=== PATIENT | male | born 1955 | race Caucasian/White ===

== ENCOUNTER → 2016-10-22 | Day surgery (SDC) | payer OTHER ==
[~2016-10-22] VITALS: Ht 185.4 cm; Wt 97.7 kg
[~2016-10-22] MED LIST: ATOR10TA15 PO; BUPIVACAINE HCL PF 0.5% 30 ML VIAL ONE; BUPIVACAINE/EPINEPHRINE 0.5% PF 30 ML VIAL ONE; DEXT 5%-NACL 0.45% 1000 ML INJ 1,000 ML IV SCH; FAMOTIDINE 20 MG/2 ML VIAL ONE; GLUM500T PO; LACTATED RINGER'S 1000 ML INJ 1,000 ML ONE; LIDOCAINE 2%/EPINEPHrine PF 1:200,000 20ML SDV INFIL ONE; LISI10TA3 PO; MIDAZOLAM HCL 2 MG/2 ML VIAL ONE; ONDANSETRON HCL 4 MG/2 ML VIAL IV PUSH ONE; PERC5TAB12 PO; POVIDONE IODINE 10% OINT 1 PACKET TOPICAL ONE; PROPOFOL 200 MG/20 ML AMP IV ONE; SODIUM CHLORIDE 0.9% FLUSH 5 ML FLUSH IVF PRN; SODIUM CHLORIDE 0.9% FLUSH 5 ML FLUSH IVF SCH; ceFAZolin 2 GM PREMIX 50 ML ONE
[2016-10-22 06:39] VITALS: BP 130/90; PULSE 70; RESP 18; TEMP 97.7; O2SAT 98
[2016-10-22 06:49] LABS: HEMATOCRIT 42.7 % (39.0-51.0); MEAN CELL VOLUME 88.3 FL (80.0-100.0); MEAN CORPUSCULAR HEMOGLOBIN 30.2 PG (27.0-34.0); MEAN CORPUSCULAR HGB CONC 34.2 % (32.0-36.0); PLATELET COUNT 290 TH/MM3 (150-450); RED BLOOD COUNT 4.83 MIL/MM3 (4.50-5.90); RED CELL DISTRIBUTION WIDTH 12.8 % (11.6-17.2); REVIEW FLAG FINAL; WHITE BLOOD COUNT 6.9 TH/MM3 (4.0-11.0)
--- NOTE | 2016-10-22 08:09 | HP.UPD ---
H&P Update Date: October 22, 2016 Note The Pre-Admit History and Physical Examination regarding the above named patient was reviewed (including, but not limited to, vital signs, medications, allergies, co-morbid conditions), and upon re-examination it is noted that: Indicated with "X" x - the patient's condition has not significantly changed since the last examination. [] - the patient's condition has changed since the last examination. Changes: Swati Paul MD October 22, 2016 08:08
--- NOTE | 2016-10-22 10:29 | HHI.PR ---
Immediate Post Op Note Procedure Date: October 22, 2016 Pre Op Diagnosis: (1) Cubital tunnel syndrome on right (2) Right carpal tunnel syndrome Post Op Diagnosis: (1) Cubital tunnel syndrome on right (2) Right carpal tunnel syndrome Surgeon: Swati Paul Horse Buyer(s): None Procedure: Open release of the right cubital tunnel. Endoscopic release of the right carpal tunnel. Anesthesia: General Drains: None Tourniquet time (min at mmHg) 64 minutes at 220 mm Hg Patient to: PACU Patient Condition: Good Date/Time of Procedure: SEE SURGICAL CARE RECORD Swati Paul MD October 22, 2016 10:29
[2016-10-22 11:50] VITALS: BP 116/70; PULSE 74; RESP 16; TEMP 97.6; O2SAT 96
--- NOTE | 2016-10-22 14:49 | MP ---
cc: ERAN TAMEZ M.D. DATE OF SURGERY: 10/22/2016. PREOPERATIVE DIAGNOSIS: 1. Right cubital tunnel syndrome. 2. Right carpal tunnel syndrome. POSTOPERATIVE DIAGNOSIS: 1. Right cubital tunnel syndrome. 2. Right carpal tunnel syndrome. OPERATIVE PROCEDURE PERFORMED: 1. Open release of the right cubital tunnel. 2. Endoscopic release of the right carpal tunnel. ANESTHESIA: General SURGEON: Eran Tamez M.D. INDICATIONS FOR THE PROCEDURE: 61-year-old male with right cubital and carpal tunnel. FINDINGS: At the completion of the procedure, the tunnels had been released and both tunnels were tight. TOURNIQUET TIME: Tourniquet time was 64 minutes. DESCRIPTION OF THE PROCEDURE IN DETAIL: The patient was seen preoperatively where the sites and side were identified and marked. The patient was then taken to the operating room and placed in a supine position. His identity was checked against the arm band and the consent form, site and side confirmed, time-out called prior to beginning the procedure. The right upper extremity was prepped with Hibiclens and draped in the usual sterile fashion. The areas to be incised were outlined with a marking pen as an incision over the course of the ulnar nerve at the cubital tunnel proximally and distally for approximately 3 to 4 cm. The transverse incision was designed 1.5 cm proximal to the distal wrist crease and the distal edge of the transverse carpal ligament was identified and marked. The arm was then exsanguinated and the tourniquet inflated to 220 mmHg. Attention was first turned to the elbow where bupivacaine 0.5% plain was mixed in equal amounts with lidocaine 2% plain with epinephrine 1:200,000. Once the area was injected and infiltrated with the anesthetic, this was then done in the area of the carpal tunnel. A 15 blade was used to make the incision down through skin down to the subcutaneous tissue. Under loupe magnification using sharp and blunt dissection the superficial vessels and nerves were identified and preserved. The cubital tunnel was identified and it was opened both proximally and distally. Care was taken to avoid injury to the nerve. Once the nerve was opened proximally and distally, the wound was irrigated with saline and closed with 4-0 Vicryl to the dermal layer and 4-0 Prolene to the skin in a subcuticular stitch. Attention was then turned to the wrist where a transverse incision was made down through the skin down to the subcutaneous tissue. Under loupe magnification using a spread technique, the forearm fascia was identified and entered. It was then elevated. The synovial elevator was then used to identify the transverse carpal ligament as well as clean the synovium from it. The obturator cannula apparatus was then introduced into the wound and then just distal to the transverse carpal ligament down to the palmar fascia into the subcutaneous plane where separate incision was made. The entire apparatus was delivered. The obturator was removed leaving the cannula in place. The scope was then passed from distal to proximal identifying the transverse carpal ligament. Then under direct vision using a scope, the transverse carpal ligament was divided. The obturator was then placed back into the cannula and the entire apparatus was removed. A forearm fasciotomy was then carried out for 2-3 cm proximal to the distal wrist incision under direct vision. The wounds were then closed with Dermabond. Once the glue had dried in several layers, Steri-Strips were applied and then pressure was applied to both areas. The tourniquet was released after 64 minutes of tourniquet time. Pressure was applied. After several minutes, there was no evidence of any oozing from either wound and a dressing was applied using 4x4s and hand wrap to the carpal tunnel incision and povidone-iodine ointment, Adaptic, Telfa, 4x4s and hand wrap to the elbow. The patient was then taken from the operating room to the recovery room in satisfactory condition having tolerated the procedure well. Postoperative instructions include keeping the arm elevated and keeping the area clean and dry. MD GIANLUCA Maurer/TIFFANIE /10:33 AM /2:42 PM
--- NOTE | 2016-10-22 15:22 | EKG ---
Date Performed: 10/22/2016 Time Performed: 06:54:00 PTAGE: 61 years EKG: Sinus rhythm . Normal ECG PREVIOUS TRACING : 08/28/2014 17.49 DOCTOR: Brandon Rivers Interpretating Date/Time 10/22/2016 15:21:22
== END | disposition home or self-care (01) ==
LOC: PHSDC 06:12
PROVIDERS: ATTEND Specialist
DX: G56.21 Lesion of ulnar nerve, right upper limb (principal); G56.01 Carpal tunnel syndrome, right upper limb; Z01.810 Encounter for preprocedural cardiovascular examination; Z01.818 Encounter for other preprocedural examination; E11.9 Type 2 diabetes mellitus without complications; I10 Essential (primary) hypertension; E78.5 Hyperlipidemia, unspecified; Z96.649 Presence of unspecified artificial hip joint
CPT/HCPCS: 01810; 29848; 36415; 64719; 85027; 93005; J0690; J2250; J2405; J3010; J7120

== ENCOUNTER 2016-10-30 19:10 | Emergency (ER) | payer OTHER ==
[~2016-10-30] VITALS: Ht 185.4 cm; Wt 98.0 kg
[~2016-10-30 19:10] MED LIST changes: -BUPIVACAINE HCL PF 0.5% 30 ML VIAL ONE; -BUPIVACAINE/EPINEPHRINE 0.5% PF 30 ML VIAL ONE; -DEXT 5%-NACL 0.45% 1000 ML INJ 1,000 ML IV SCH; -FAMOTIDINE 20 MG/2 ML VIAL ONE; -LACTATED RINGER'S 1000 ML INJ 1,000 ML ONE; -LIDOCAINE 2%/EPINEPHrine PF 1:200,000 20ML SDV INFIL ONE; -MIDAZOLAM HCL 2 MG/2 ML VIAL ONE; -ONDANSETRON HCL 4 MG/2 ML VIAL IV PUSH ONE; -PERC5TAB12 PO; -POVIDONE IODINE 10% OINT 1 PACKET TOPICAL ONE; -PROPOFOL 200 MG/20 ML AMP IV ONE; -SODIUM CHLORIDE 0.9% FLUSH 5 ML FLUSH IVF PRN; -SODIUM CHLORIDE 0.9% FLUSH 5 ML FLUSH IVF SCH; -ceFAZolin 2 GM PREMIX 50 ML ONE
[2016-10-30 19:19] VITALS: BP 131/69; PULSE 72; RESP 18; TEMP 97.9; O2SAT 97
[2016-10-30] MEDS ORDERED: SODIUM CHLORIDE 0.9% FLUSH 10 ML FLUSH IVF PRN (19:30)
[2016-10-30 19:44] VITALS: BP_SYST 106; BP_SYST 112; BP_SYST 113; BP_DIAS 57; BP_DIAS 62; BP_DIAS 66
--- NOTE | 2016-10-30 19:44 | PD ---
HPI Chief Complaint: Allergic/Adverse Reaction Time Seen by Provider: 19:18 Travel History International Travel<30 days: No Contact w/Intl Traveler<30days: No Traveled to known affect area: No History of Present Illness HPI 61-year-old male with history of HTN, HLD, borderline diabetes here with possible allergic reaction. Patient was eating a fire house when suddenly he became lightheaded, and broke out into a red raised rash. Patient did not have any associated breathing difficulty, airway itching, nausea, vomiting or diarrhea. EMS was called and noticed patient to be "beet red" with urticarial type rash along the extremities and torso. Patient was initially hypotensive with systolics in the 80s. He was given 50 mg Benadryl, 125 mg Solu-Medrol with improvement of his symptoms and en route his blood pressure improved spontaneously. Patient denies any known history of food allergies. He is allergic to codeine, Vicodin, Celebrex but actually take Celebrex daily at home. His allergy to Celebrex is not an allergy but rather a side effect with a history of bleeding from the past. Patient feels back to baseline at this time. PFSH Past Medical History Cancer: No Cardiovascular Problems: No High Cholesterol: Yes Diabetes: Yes (BORDERLINE TYPE 2) Patient Takes Glucophage: Yes (10/30/2016 2200) Diminished Hearing: No Endocrine: No Glaucoma: No Genitourinary: No Hepatitis: No Hiatal Hernia: No Hypertension: Yes Immune Disorder: No Medical other: Yes (mild arthritis) Musculoskeletal: Yes (RIGHT HIP OSTEOARTHRTIS) Neurologic: No Psychiatric: No Reproductive: No Respiratory: No Thyroid Disease: No Tetanus Vaccination: < 5 Years Influenza Vaccination: No Past Surgical History Abdominal Surgery: No AICD: No Cardiac Surgery: No Ear Surgery: No Endocrine Surgery: No Eye Surgery: No Genitourinary Surgery: No Gynecologic Surgery: No Joint Replacement: Yes (RIGHT HIP) Oral Surgery: No Pacemaker: No Thoracic Surgery: No Other Surgery: Yes (right knee scope) Social History Alcohol Use: Yes (occ) Tobacco Use: No (quit 33 years ago) Substance Use: No Allergies-Medications (Allergen,Severity, Reaction): Coded Allergies: Celebrex (Verified Allergy, Severe, increased bleeding, 10/28/16) all antiflammatories Codeine (Verified Allergy, Unknown, NAUSEA & VOMITING, 10/28/16) Uncoded Allergies: VICODIN (Adverse Reaction, Mild, NAUSEA AND VOMITING, 05/29/10) Reported Meds & Prescriptions Reported Meds & Active Scripts Active Reported Glumetza (Metformin HCl) 500 Mg Ashwin 500 Mg PO DAILY With evening meal Lisinopril 10 Mg Tab 10 Mg PO DAILY Atorvastatin (Atorvastatin Calcium) 10 Mg Tab 10 Mg PO DAILY Review of Systems Except as stated in HPI: all other systems reviewed are Neg Physical Exam Narrative GENERAL: Well-appearing middle-aged male in no acute distress SKIN: Focused skin assessment warm/dry. No appreciable rash, urticaria HEAD: Normocephalic. EYES: No scleral icterus. No injection or drainage. ENT: No nasal bleeding or discharge. Mucous membranes pink and moist. Posterior pharynx clear without tonsillar swelling, posterior pharyngeal edema. No tongue swelling. NECK: Trachea midline. No JVD. Supple without stridor CARDIOVASCULAR: Regular rate and rhythm. No murmur appreciated. RESPIRATORY: No accessory muscle use. Clear to auscultation. Breath sounds equal bilaterally. GASTROINTESTINAL: Abdomen soft, non-tender, nondistended. MUSCULOSKELETAL: No obvious deformities. No edema. NEUROLOGICAL: Awake and alert. Motor grossly within normal limits. Normal speech. PSYCHIATRIC: Appropriate mood and affect; insight and judgment normal. Data Data Last Documented VS Vital Signs Date Time Temp Pulse Resp B/P Pulse Ox O2 Delivery O2 Flow Rate FiO2 10/30/16 19:44 63 106/57 70 112/62 77 113/66 10/30/16 19:19 97.9 18 97 Orders Electrocardiogram (10/30/16 19:18) Basic Metabolic Panel (Bmp) (10/30/16 19:18) Complete Blood Count With Diff (10/30/16 19:18) Ecg Monitoring (10/30/16 19:18) Iv Access Insert/Monitor (10/30/16 19:18) Oximetry (10/30/16 19:18) Sodium Chloride 0.9% Flush (Ns Flush) (10/30/16 19:30) Labs Laboratory Tests Test 10/30/16 19:30 White Blood Count 8.9 TH/MM3 Red Blood Count 4.76 MIL/MM3 Hemoglobin 14.7 GM/DL Hematocrit 42.6 % Mean Corpuscular Volume 89.6 FL Mean Corpuscular Hemoglobin 30.8 PG Mean Corpuscular Hemoglobin 34.4 % Concent Red Cell Distribution Width 13.8 % Platelet Count 257 TH/MM3 Mean Platelet Volume 6.6 FL Neutrophils (%) (Auto) 60.4 % Lymphocytes (%) (Auto) 33.0 % Monocytes (%) (Auto) 4.0 % Eosinophils (%) (Auto) 2.0 % Basophils (%) (Auto) 0.6 % Neutrophils # (Auto) 5.4 TH/MM3 Lymphocytes # (Auto) 2.9 TH/MM3 Monocytes # (Auto) 0.4 TH/MM3 Eosinophils # (Auto) 0.2 TH/MM3 Basophils # (Auto) 0.1 TH/MM3 CBC Comment DIFF FINAL Differential Comment Sodium Level 141 MEQ/L Potassium Level 3.0 MEQ/L Chloride Level 108 MEQ/L Carbon Dioxide Level 19.3 MEQ/L Anion Gap 14 MEQ/L Blood Urea Nitrogen 13 MG/DL Creatinine 1.24 MG/DL Estimat Glomerular Filtration 60 ML/MIN Rate Random Glucose 190 MG/DL Calcium Level 7.6 MG/DL MDM Medical Decision Making Medical Screen Exam Complete: Yes Emergency Medical Condition: Yes Medical Record Reviewed: Yes Differential Diagnosis 61-year-old male with history of HTN, HLD, borderline diabetes here for possible allergic reaction after eating at [employer]. Differential includes allergic reaction, anaphylaxis, presyncopal episode, electrolyte abnormality, symptomatic anemia, arrhythmia. Narrative Course Patient placed on monitor, IV established and blood obtained. A twelve-lead EKG shows sinus rhythm without notable ST or T-wave abnormalities and normal intervals. CBC, BMP were obtained and notable for potassium 3.0, patient replaces 60 mEq orally. Patient again is asymptomatic and back to baseline at this time. Diagnosis Primary Impression: Allergic reaction Qualified Code: T78.40XA - Allergic reaction, initial encounter Referrals: Primary Care Physician as needed Additional Instructions: Benadryl as needed for itching, rash. Return to the ER for the warning signs discussed. Med/Other Pt SpecificInfo: No Change to Meds Disposition: 01 DISCHARGE HOME Condition: Stable Elis Plaza MD October 30, 2016 19:44
[2016-10-30 19:46] LABS: AUTOMATED NEUTROPHIL # 5.4 TH/MM3 (1.8-7.7); BASOPHIL # 0.1 TH/MM3 (0-0.2); BASOPHIL % 0.6 % (0.0-2.0); EOSINOPHIL # 0.2 TH/MM3 (0-0.4); HEMATOCRIT 42.6 % (39.0-51.0); HEMO FLAGS DIFF FINAL; LYMPHOCYTE # 2.9 TH/MM3 (1.0-4.8); MEAN CELL VOLUME 89.6 FL (80.0-100.0); MEAN CORPUSCULAR HEMOGLOBIN 30.8 PG (27.0-34.0); MEAN CORPUSCULAR HGB CONC 34.4 % (32.0-36.0); NEUT % 60.4 % (16.0-70.0); PLATELET COUNT 257 TH/MM3 (150-450); RED BLOOD COUNT 4.76 MIL/MM3 (4.50-5.90); RED CELL DISTRIBUTION WIDTH 13.8 % (11.6-17.2); WHITE BLOOD COUNT 8.9 TH/MM3 (4.0-11.0)
[2016-10-30 20:08] LABS: BICARBONATE 19.3 MEQ/L (21.0-32.0)
[2016-10-30] MEDS ORDERED: POTASSIUM CHLORIDE 20 MEQ CONTROLLED RELEASE TAB PO ONE (20:15)
--- NOTE | 2016-10-31 15:10 | EKG ---
Date Performed: 10/30/2016 Time Performed: 19:25:33 PTAGE: 61 years EKG: Sinus rhythm Since previous tracing, no significant change noted NORMAL ECG PREVIOUS TRACING : 10/22/2016 06.54 DOCTOR: Anca Valladares Interpretating Date/Time 10/31/2016 15:09:16
== END 2016-10-30 20:48 | disposition home or self-care (01) ==
LOC: NEPE 19:10
DX: T78.40XA Allergy, unspecified, initial encounter (principal); I10 Essential (primary) hypertension; X58.XXXA Exposure to other specified factors, initial encounter
CPT/HCPCS: 80048; 85025; 93005

== ENCOUNTER 2017-01-06 23:46 | Emergency (ER) | payer OTHER ==
[2017-01-06 23:48] VITALS: BP 135/78; PULSE 107; RESP 20; TEMP 97.9; O2SAT 96
[2017-01-06] MEDS ORDERED: SODIUM CHLOR 0.9% 1000 ML INJ 1,000 ML IV SCH (23:52)
[2017-01-07] MEDS ORDERED: methylPREDNISolone SOD SUCC 125 MG/2 ML VIAL IVP ONE
[2017-01-07] MEDS ORDERED: SODIUM CHLORIDE 0.9% FLUSH 10 ML FLUSH IV FLUSH PRN
[2017-01-07] MEDS ORDERED: FAMOTIDINE 20 MG/2 ML VIAL IV PUSH ONE
[2017-01-07] MEDS ORDERED: diphenhydrAMINE HCL 50 MG/ML VIAL IVP ONE
--- NOTE | 2017-01-07 00:04 | PD ---
HPI Chief Complaint: Allergic/Adverse Reaction Time Seen by Provider: 23:52 Travel History International Travel<30 days: No Contact w/Intl Traveler<30days: No Traveled to known affect area: No History of Present Illness HPI 61-year-old male arrives due to rash which started suddenly about one hour prior. The patient took a Celebrex about an hour before hand. He denies shortness of breath although does report a vague fullness sensation about the lips. He reports a similar episode occurred couple weeks prior after taking Vicodin. Location immunologic and skin. Timing constant. Severity moderate. He is unaware of any other potential allergen exposure. PFSH Past Medical History Cancer: No Cardiovascular Problems: No High Cholesterol: Yes Diabetes: Yes (BORDERLINE TYPE 2) Diminished Hearing: No Endocrine: No Glaucoma: No Genitourinary: No Hepatitis: No Hiatal Hernia: No Hypertension: Yes Immune Disorder: No Musculoskeletal: Yes (RIGHT HIP OSTEOARTHRTIS) Neurologic: No Psychiatric: No Reproductive: No Respiratory: No Thyroid Disease: No Past Surgical History Abdominal Surgery: No AICD: No Cardiac Surgery: No Ear Surgery: No Endocrine Surgery: No Eye Surgery: No Genitourinary Surgery: No Gynecologic Surgery: No Joint Replacement: Yes (RIGHT HIP) Oral Surgery: No Pacemaker: No Thoracic Surgery: No Other Surgery: Yes (right knee scope) Social History Alcohol Use: Yes (occ) Tobacco Use: No (quit 33 years ago) Substance Use: No Allergies-Medications (Allergen,Severity, Reaction): Coded Allergies: Celebrex (Verified Allergy, Severe, increased bleeding, 11/04/16) all antiflammatories Codeine (Verified Allergy, Unknown, NAUSEA & VOMITING, 11/04/16) Uncoded Allergies: VICODIN (Adverse Reaction, Mild, NAUSEA AND VOMITING, 05/29/10) Reported Meds & Prescriptions Reported Meds & Active Scripts Active Prednisone 20 Mg Tab 40 Mg PO DAILY 4 Days Take 40 mg (2 tablets) daily for 5 days Reported Glumetza (Metformin HCl) 500 Mg Ashwin 500 Mg PO DAILY With evening meal Lisinopril 10 Mg Tab 10 Mg PO DAILY Atorvastatin (Atorvastatin Calcium) 10 Mg Tab 10 Mg PO DAILY Review of Systems Except as stated in HPI: all other systems reviewed are Neg General / Constitutional: No: Fever Skin: Positive Rash Physical Exam Narrative GENERAL: 61-year-old male mild distress secondary to rash SKIN: Blanching erythema confluent from the dorsum of the feet to the region of the groin. Urticarial lesions in the antecubital fossae bilaterally. HEAD: Atraumatic. Normocephalic. EYES: Pupils equal and round. No scleral icterus. No injection or drainage. ENT: No nasal bleeding or discharge. Mucous membranes pink and moist. Posterior oropharynx is widely patent. NECK: Trachea midline. No JVD. CARDIOVASCULAR: Regular rate and rhythm. No murmur appreciated. RESPIRATORY: No accessory muscle use. Clear to auscultation. Breath sounds equal bilaterally. GASTROINTESTINAL: Abdomen soft, non-tender, nondistended. Hepatic and splenic margins not palpable. MUSCULOSKELETAL: No obvious deformities. No clubbing. No cyanosis. No edema. NEUROLOGICAL: Awake and alert. No obvious cranial nerve deficits. Motor grossly within normal limits. Normal speech. PSYCHIATRIC: Appropriate mood and affect; insight and judgment normal. Data Data Last Documented VS Vital Signs Date Time Temp Pulse Resp B/P Pulse Ox O2 Delivery O2 Flow Rate FiO2 01/07/17 00:11 97.4 60 18 116/60 96 01/06/17 23:48 Room Air Orders Ecg Monitoring (01/06/17 23:52) Iv Access Insert/Monitor (01/06/17 23:52) Oximetry (01/06/17 23:52) Diphenhydramine Inj (Benadryl Inj) (01/07/17 00:00) Methylprednisolone So Succ Inj (Solumedr (01/07/17 00:00) Famotidine Inj (Pepcid Inj) (01/07/17 00:00) Sodium Chlor 0.9% 1000 Ml Inj (Ns 1000 M (01/06/17 23:52) Sodium Chloride 0.9% Flush (Ns Flush) (01/07/17 00:00) Ondansetron Odt (Zofran Odt) (01/07/17 01:00) MDM Medical Decision Making Medical Screen Exam Complete: Yes Emergency Medical Condition: Yes Differential Diagnosis Anaphylaxis, urticaria, angioedema Narrative Course Patient reassessed at 12:50 AM and reports feeling much better although he does endorse nausea. The rash has resolved completely. We'll send home with prednisone. Diagnosis Primary Impression: Allergic reaction Qualified Code: T78.40XA - Allergic reaction, initial encounter Referrals: Primary Care Physician call for appointment Additional Instructions: You have a choice when it comes to health care, and we are glad that you chose [facility]. Hopefully, we have met your expectations on today's visit. You are welcome to return to [facility] at any time, as we are committed to meeting the health care needs of our community. Please be advised that prednisone will increase your fingerstick glucose measurements. Med/Other Pt SpecificInfo: Prescription(s) given Scripts Prednisone 20 Mg Tab40 Mg PO DAILY 4 Days Ref 0 Take 40 mg (2 tablets) daily for 5 days Prov:Ronald Oscar MD 01/07/17 Disposition: 01 DISCHARGE HOME Condition: Stable Ronald Oscar MD Jan 07, 2017 00:04
[2017-01-07 00:08] VITALS: RESP 18; O2SAT 100
[2017-01-07 00:11] VITALS: BP 116/60; PULSE 60; RESP 18; TEMP 97.4; O2SAT 96
[2017-01-07] MEDS ORDERED: PRED20 PO (00:57)
[2017-01-07] MEDS ORDERED: ONDANSETRON ODT 4 MG TAB PO ONE (01:00)
== END 2017-01-07 01:43 | disposition home or self-care (01) ==
LOC: NEPE 23:46
DX: T78.40XA Allergy, unspecified, initial encounter (principal)
CPT/HCPCS: 96374; 96375; 99284; J1200; J2930; J7030